=== PATIENT | female | born 1985 | race African-American/Black ===

== ENCOUNTER 2021-12-29 17:52 | Emergency (ER) | payer SELFPAY ==
[2021-12-29 17:58] VITALS: BP 131/78; PULSE 90; RESP 14; TEMP 36.2; O2SAT 100
--- NOTE | 2021-12-29 18:02 | ED.BACK ---
HPI - Back Pain/Injury General Chief Complaint: Back Pain/Injury Stated Complaint: left upper back pain from fall Time Seen by Provider: 12/29/21 18:02 Source: patient and RN notes reviewed History of Present Illness HPI Narrative: Patient is a 36-year-old female who presents the urgent care with complaints of left-sided mid to upper back pain. Patient states that she slipped down 3 wooden steps this morning at 5 AM falling onto her back. Patient denies hitting her head or any loss of consciousness. States that the pain increases with movement. She has not taken anything [id number] for her pain. Denies of any shortness of breath. No other acute complaints. No acute distress noted. Patient aware of the plan of care. Some parts of this dictation were generated by voice recognition software and may contain typographical and/or grammatical inaccuracies. Related Data Home Medications Medication Instructions Recorded Confirmed levothyroxine 88 mcg PO DAILY 12/29/21 12/29/21 Allergies Allergy/AdvReac Type Severity Reaction Status Date / Time No Known Allergies Allergy Verified 12/29/21 18:04 Review of Systems Review of Systems: CONSTITUTIONAL: Denies fever, chills, or sweats. EYES: Denies visual changes, redness, or discharge. ENT: Denies rhinorrhea, congestion, sore throat, or otalgia. CARDIOVASCULAR: Denies chest pain, palpitations, or edema. RESPIRATORY: Denies cough or dyspnea. GASTROINTESTINAL: Denies abdominal pain, nausea, vomiting, or diarrhea. GENITOURINARY: Denies dysuria or hematuria. SKIN: Denies rash or itching. MUSCULOSKELETAL: Reports of back pain due to fall NEUROLOGIC: Denies headache, numbness, or weakness. All other systems reviewed are negative, except as documented in HPI. PMFSH Comments At the time of my signature, I reviewed and agree with the nursing past medical, surgical, social, and family history. There is no relevant family history pertinent to the patient complaint. Exam Narrative: GENERAL: This is a well-nourished, well-developed patient, in no apparent distress. HEAD: normocephalic, atraumatic. EYES: PERRL. Sclera clear/white. Vision is grossly intact. EARS: External ears normal NOSE: External nose normal with no obvious nasal discharge, nares without redness, no rhinorrhea. THROAT: Mucous membranes moist NECK: Neck supple CARDIOVASCULAR: Regular rate and rhythm without murmurs, gallops, or rubs. RESPIRATORY: Clear to auscultation. Breath sounds equal bilaterally. No wheezes, rales, or rhonchi. SKIN: warm, intact with no suspicious lesions or rash, good texture and turgor. NEURO: awake, alert, and oriented to person, place and time. There were no obvious focal neurologic abnormalities. EXTREMITIES: No clubbing, cyanosis, or edema. BACK: Mild ecchymosis, tenderness and mild edema to the left thoracic region. No spinal tenderness. Range of motion within normal limits with mild exacerbated pain on twisting motion no crepitus. Course Course Level of Care: Express Care Visit Vital Signs Vital signs: Vital Signs Temperature 97.1 F L 12/29/21 17:58 Pulse Rate 90 12/29/21 17:58 Respiratory Rate 14 12/29/21 17:58 Blood Pressure 131/78 12/29/21 17:58 Pulse Oximetry 100 12/29/21 17:58 Temperature 97.1 F L 12/29/21 17:58 Pulse Rate 90 12/29/21 17:58 Respiratory Rate 14 12/29/21 17:58 Blood Pressure 131/78 12/29/21 17:58 Pulse Oximetry 100 12/29/21 17:58 Reviewed MDM - Back Pain/Injury MDM Narrative Medical decision making narrative: Advised patient to use ice/heating pad as needed for pain and discomfort. Use Tylenol/ibuprofen as needed. Would recommend taking something prior to work tomorrow. Avoid any strenuous activity such as heavy lifting/pushing/pulling. There may be a fractured rib however there is no treatment. Make sure you are practicing deep breathing. If you develop any increase in pain associated with loss of bowel or bladder?
== END 2021-12-29 18:14 | disposition home or self-care (01) ==
PROVIDERS: Emergency Provider Nurse Practitioner Family; PCP Internal Medicine
DX: S20.222A Contusion of left back wall of thorax, initial encounter (principal); W10.9XXA Fall (on) (from) unspecified stairs and steps, initial encounter; E03.9 Hypothyroidism, unspecified
CPT/HCPCS: 99212; G0463